=== PATIENT | female | born 1960 | race Hispanic/Latino ===

== ENCOUNTER 2020-02-12 06:19 | Day surgery (SDC) | payer OTHER ==
[2020-02-06 12:45] LABS: BASOPHILS % (AUTO) 0.9 % (0.0-5.0); EOSINOPHILS % (AUTO) 3.7 % (0.0-8.0); HEMATOCRIT 38.1 % (36-48); MEAN CORPUSCULAR HEMOGLOBIN 30.8 pg (27.0-33.0); MEAN CORPUSCULAR HGB CONC 32.8 g/dL (32.0-36.0); MEAN CORPUSCULAR VOLUME 93.8 fL (79-99); MONOCYTES % (AUTO) 13.1 % (3.0-13.0); NEUTROPHILS % (AUTO) 45.9 % (40.0-77.0); PLATELET COUNT (AUTO) 289 K/uL (130-400); RED BLOOD CELL COUNT(AUTO) 4.06 MIL/uL (4.00-5.50); RED CELL DISTRIBUTION WIDTH 12.2 % (11.0-15.5); WHITE BLOOD COUNT (AUTO) 5.6 K/uL (4.8-10.8)
[2020-02-06 12:59] LABS: CREATININE 0.7 mg/dL (0.5-1.5); POTASSIUM 4.5 mmol/L (3.5-5.1)
[2020-02-11 08:53] VITALS: BP 121/54
[2020-02-12] VITALS (15 sets, daily range): BP systolic 103–149; BP diastolic 51–91
[~2020-02-12] VITALS: Ht 165.1 cm; Wt 64.0 kg
[2020-02-12] MEDS: CEFAZOLIN SODIUM 1 GM VIAL IVP SCH ×2 (05:00→08:00)
[~2020-02-12 06:19] MED LIST: ALBU0.63 IH; CALC-1105 PO; CETI10TA57 PO; FISH1CAP20 PO; LIFI1DRO OU; LISI2.5T2 PO; METF-444 PO; MULT-1103 PO; UMEC1DIS IH; VITA1CAP20 PO
[2020-02-12] MEDS ORDERED: SODIUM CHLORIDE 0.9% 1000ML 1,000 ML IV ONE (06:36)
[2020-02-12] MEDS ORDERED: SUCCINYLCHOLINE CHLORIDE 20 MG/ML 10 ML VIAL ONE (06:48)
[2020-02-12] MEDS ORDERED: LIDOCAINE PF 2% 5ML ABBOJECT ONE (06:48)
[2020-02-12] MEDS ORDERED: PROPOFOL 10 MG/ML 20ML VIAL IV ONE (06:49)
[2020-02-12] MEDS ORDERED: MIDAZOLAM HCL 1 MG/ML 2ML VIAL ONE (06:49)
[2020-02-12] MEDS ORDERED: FENTANYL CITRATE PF 50 MCG/1 ML 2ML VIAL ONE (06:49)
[2020-02-12] MEDS ORDERED: ROCURONIUM 10MG/1ML SYR 10 MG/ML ML ONE (06:49)
[2020-02-12] MEDS ORDERED: ROPIVACAINE 0.5% 5MG/ML 30ML IJ ONE (07:09)
[2020-02-12] MEDS ORDERED: EPHEDRINE SULFATE 50 MG/ML AMPULE ONE (08:40)
[2020-02-12] MEDS ORDERED: NEOSTIGMINE 5MG/5ML SYR IV ONE (09:08)
[2020-02-12] MEDS ORDERED: GLYCOPYRROLATE 1 MG/5 ML SYRINGE ONE (09:08)
--- NOTE | 2020-02-12 10:35 | NUR ---
POST OP RECEIVED PT POST OP. PT HAS DRESSING TO RT SHOULDER WITH SMALL BLOOD SHADOW STAIN NOTED. PT HAS SLING TO RT ARM HAND WITH MILD EDEMA, WARM TO TOUCH AND GOOD CAPILLARY REFILL. PT GIVEN ICE CHIPS. WILL CONTINUE TO MONITOR PT
--- NOTE | 2020-02-12 11:30 | NUR ---
DISCHARGE PT DOING WELL. C/O MILD SORE THROAT ONLY. PT AND SPOUSE GIVEN DISCHARGE INSTRUCTIONS. PT HAS SLING TO RT ARM AND NO CHANGE TO DRESSING BLOOD SHADOW STAIN.
--- NOTE | 2020-02-12 11:33 | NUR ---
DISCHARGE PT TAKEN OUT VIA W/C BY REJI LEDBETTER IN NO DISTRESS
== END 2020-02-12 11:33 | disposition home or self-care (01) ==
LOC: DAH 06:19
PROVIDERS: ATTEND Orthopaedic Surgery
DX: S46.021A Laceration of muscle(s) and tendon(s) of the rotator cuff of right shoulder, initial encounter (principal); J44.9 Chronic obstructive pulmonary disease, unspecified; K21.9 Gastro-esophageal reflux disease without esophagitis; E11.9 Type 2 diabetes mellitus without complications; M19.90 Unspecified osteoarthritis, unspecified site; X58.XXXA Exposure to other specified factors, initial encounter; Y93.89 Activity, other specified; Y92.89 Other specified places as the place of occurrence of the external cause; Y99.8 Other external cause status; Z88.0 Allergy status to penicillin
CPT/HCPCS: 23412; 36415; 64415; 76942; 80048; 82948 ×2; 85025; 93005; A4215; A4452; A4565; A4649 ×4; A4930; A6260; C1713 ×2; J0330; J0690; J2001; J2250; J2704; J2710; J2795; J3010; J3490 ×2; J7030 ×2

== ENCOUNTER → 2023-10-14 | Outpatient (CLI) | payer BC, SELFPAY ==
[~2023-10-14] MED LIST changes: +IOHEXOL-350 75 ML VIAL IV ONE; +LISI2.5T13 PO; -LISI2.5T2 PO
== END | disposition home or self-care (01) ==
LOC: RAH 08:08
PROVIDERS: ATTEND Family Medicine
DX: R10.2 Pelvic and perineal pain (principal); R10.9 Unspecified abdominal pain; I25.10 Atherosclerotic heart disease of native coronary artery without angina pectoris; M47.815 Spondylosis without myelopathy or radiculopathy, thoracolumbar region
CPT/HCPCS: 74178; Q9967